=== PATIENT | female | born 1970 | race Caucasian/White ===

== ENCOUNTER 2017-02-17 05:34 | Inpatient (IN) | payer OTHER ==
[2017-02-14 10:11] VITALS: Ht 151.1 cm; Wt 68.0 kg
[2017-02-17] VITALS (29 sets, daily range): BP systolic 83–144; BP diastolic 49–77; PULSE 68–117; RESP 10–24
[~2017-02-17] VITALS: Ht 151.1 cm; Wt 68.0 kg
[2017-02-17] MEDS ORDERED: BUPIVACAINE 0.25% (MPF) 10 ML 10 ML VIAL ONE (06:41)
[2017-02-17] MEDS ORDERED: GELATIN SIZE 100 SPONGE ONE (06:41)
[2017-02-17] MEDS ORDERED: THROMBIN 5000 UNIT VIAL ONE (06:41)
[2017-02-17] MEDS ORDERED: POLYMYXIN/BACITRACIN 1L IRRIG ONE (06:41)
[2017-02-17] MEDS ORDERED: FENTAnyl 50 MCG/ML VIAL ONE (06:48)
[2017-02-17] MEDS ORDERED: CEFAZOLIN 2 GM/50 ML (PMX) 50 ML IVPB ONE (06:54)
[2017-02-17] MEDS ORDERED: CEFAZOLIN 2 GM/50 ML (PMX) 50 ML IVPB SCH (06:55)
--- NOTE | 2017-02-17 06:55 | HPN ---
Date/Time of Note Date/Time of Note DATE: 02/17/17 TIME: 06:55 Interval H&P Admission Note Pt. seen H&P reviewed: No system changes SIMON HECTOR MD Feb 17, 2017 06:55
[2017-02-17] MEDS ORDERED: HYDR-906 PO (07:16)
[2017-02-17] MEDS ORDERED: LIDOCAINE 2% (SDV) 5 ML INJ ONE (07:39)
[2017-02-17] MEDS ORDERED: SUCCINYLCHOLINE CHLORIDE 100 MG/5 ML SYG IV ONE (07:39)
[2017-02-17] MEDS ORDERED: SUGAMMADEX SODIUM 200 MG/2 ML VIAL IV ONE (07:39)
[2017-02-17] MEDS ORDERED: PROPOFOL 40 ML ONE (07:39)
[2017-02-17] MEDS ORDERED: ROCURONIUM 50 MG INJ ONE (07:39)
[2017-02-17] MEDS ORDERED: DIPHENHYDRAMINE 50 MG INJ IV PRN (08:00)
[2017-02-17] MEDS ORDERED: ONDANSETRON 4 MG INJ IV PRN ×2 (08:00→09:00)
[2017-02-17] MEDS ORDERED: LABETALOL HCL 20MG INJ IV PRN (08:00)
[2017-02-17] MEDS ORDERED: METOCLOPRAMIDE 10 MG INJ IV PRN (08:00)
[2017-02-17] MEDS ORDERED: HYDROmorphONE (0.2 MG/ML) 10ML SYG IV PRN ×2 (08:00)
[2017-02-17] MEDS ORDERED: MEPERIDINE 25 MG INJ IV PRN (08:00)
[2017-02-17] MEDS ORDERED: FENTAnyl 50 MCG/ML VIAL IV PRN ×2 (08:00)
[2017-02-17] MEDS: HYDROmorphONE (0.2 MG/ML) 10ML SYG IV PRN ×3 (08:44→09:26)
[2017-02-17] MEDS ORDERED: HYDROmorphONE 0.2 MG/ML PCA ONE (08:58)
[2017-02-17] MEDS ORDERED: DEXTROSE 5%-0.45% NACL 1,000 ML IV SCH (09:00)
[2017-02-17] MEDS ORDERED: BETHANECHOL 25 MG TAB PO PRN (09:00)
[2017-02-17] MEDS ORDERED: ZOLPIDEM 5 MG TAB PO PRN (09:00)
[2017-02-17] MEDS ORDERED: DIPHENHYDRAMINE 50 MG CAP PO PRN (09:00)
[2017-02-17] MEDS ORDERED: TRIMETHOBENZAMIDE 100 MG/ML VIAL IM PRN (09:00)
[2017-02-17] MEDS ORDERED: ACETAMINOPHEN 325 MG TAB PO PRN (09:00)
[2017-02-17] MEDS ORDERED: HYDROCODONE/APAP (5/325) TAB PO PRN ×2 (09:00)
[2017-02-17] MEDS ORDERED: PROCHLORPERAZINE 10 MG TAB PO PRN (09:00)
[2017-02-17] MEDS ORDERED: DIAZEPAM 5 MG/ML SYG IM PRN (09:00)
[2017-02-17] MEDS ORDERED: DIAZEPAM 5 MG TAB PO PRN (09:00)
[2017-02-17] MEDS ORDERED: AL HYDROX/MG HYDROX/SIMETH 30 ML CUP PO PRN (09:00)
[2017-02-17] MEDS ORDERED: NACL 0.9% 3 ML SYG IV SCH (09:00)
[2017-02-17] MEDS ORDERED: CEPASTAT LOZENGE MT PRN (09:00)
[2017-02-17] MEDS ORDERED: NALOXONE (0.4 MG/ML) INJ IV PRN (09:00)
--- NOTE | 2017-02-17 09:10 | SIPON ---
Date/Time of Note Date/Time of Note DATE: 02/17/17 TIME: 09:05 Operative Report Preoperative Diagnosis Herniated lumbar disc L4-5 on the right Postoperative Diagnosis Same Operation/Procedure Performed Lumbar laminotomy L4 on the right Microdiscectomy L4-5 on the right Medial facetectomy and foraminotomy L4-5 on the right Cosmetic wound closure (2.6 cm) Lateral localizing lumbar radiographs (2) Intraoperative nerve monitoring (45 minutes) Surgeon: SIMON HECTOR MD technical administrative assistant: SAEID HOFFMAN Anesthesia Type: general Estimated Blood Loss: 10 - 50 ml's Transfusion Required: no Specimens Disc L4-5 on the right Grafts/Implants: none Complications: no SIMON HECTOR MD Feb 17, 2017 09:10
[2017-02-17] MEDS: HYDROmorphONE 0.2 MG/ML PCA IV SCH (09:16)
--- NOTE | 2017-02-17 11:23 | RADRPT ---
PROCEDURE: XR Lumbar Spine. CLINICAL INDICATION: Lower back Pain. L4-5 microdiskectomy TECHNIQUE: An AP view of the lumbar spine was obtained. COMPARISON: No prior studies are available for comparison. FINDINGS: Alignment is anatomic. No fracture or dislocation. Diffuse degenerative disk disease is noted. Po stsurgical changes are present. There are probes directed at the body and posterior elements of L4 and L5. IMPRESSION: Intraoperative localization film. Anatomic alignment. RPTAT: QQ .Lorena Venegas MD, MD Date Time Electronically viewed and signed by .Lorena Venegas MD, MD on 02/17/2017 11:23 .F/
--- NOTE | 2017-02-17 11:27 | RADRPT ---
PROCEDURE: XR Lumbar Spine. CLINICAL INDICATION: Lower back Pain. L4-5 microdiskectomy TECHNIQUE: An AP view of the lumbar spine was obtained. COMPARISON: Plain film from the same day FINDINGS: Alignment is anatomic. No fracture or dislocation. Diffuse degenerative disk disease is noted. Po stsurgical changes are present. 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 IMPRESSION: Intraoperative localization film. Anatomic alignment. RPTAT: QQ .Lorena Venegas MD, MD Date Time Electronically viewed and signed by .Lorena Venegas MD, on 02/17/2017 11:26 .F/
[2017-02-17] MEDS: CEFAZOLIN 1 GM/50 ML (PMX) 50 ML IVPB SCH ×2 (11:56→18:04)
--- NOTE | 2017-02-17 12:03 | OPR ---
DATE OF OPERATION: 02/17/2017 SURGEON: Sammy Pennington MD. CMM TECHNICIAN: Elsie Kingston PA-C. ANESTHESIOLOGIST: Roberto Bustillo MD PREOPERATIVE DIAGNOSIS: Herniated disc, L4-5 on the right. POSTOPERATIVE DIAGNOSIS: Herniated disc, L4-5 on the right. OPERATION PERFORMED: 1. Right hemilaminotomy, L4. 2. Microdiskectomy L4-5 on the right. 3. Medial facetectomy foraminotomy L4-5 on the right. 4. Cosmetic wound closure (2.6 cm). 5. Lateral localized lumbar radiographs (2). 6. Intraoperative nerve monitoring (45 minutes). ANESTHESIA: General tracheal. ESTIMATED BLOOD LOSS: 30 mL-none replaced. DRAINS: Two medium Hemovac drains employed. COMPLICATIONS: No complications. INDICATIONS: This is a 47-year-old female who sustained injury to her back in the course of employment on 03/29/2016. She has had extensive care since that time, and she has remained symptomatic with pain in her back radiating down the right leg which has been unrelieved by conservative management. She has undergone a number of diagnostic studies including an MRI of the lumbar spine which demonstrated herniation of the L4-5 disc centrally into the right. Treatment options were discussed with the patient. She elected to proceed with surgery. OPERATIVE FINDINGS AT SURGERY: A small right paracentral herniation at L4-5 was confirmed. The baseline intraoperative nerve monitor revealed decrease in the right L4 potential 40 percent and decrease in the right L5 potential 50 percent. These both returned to normal at the completion of surgery. OPERATION PERFORMED: With the patient in supine position and after satisfactory induction of general endotracheal anesthesia by , the patient was turned to the prone position onto the [place] frame. All pressure points were carefully padded. The back was prepped and draped usual sterile fashion. Athrombic pumps were applied to the legs below the knees, for venous stasis during and after the procedure. Two spinal needles were placed at what was felt to be the L4 and L5 spinous processes, lateral roentgenogram was taken which confirmed anatomical position. A 2.6 cm incision was then carried midline over the spinous process of L4. After the skin was infiltrated with 0.25 percent Marcaine without epinephrine for postoperative analgesia. Superficial retractors were placed and hemostasis was secured with electrocautery. Throughout the procedure copious antibacterial irrigating solution was used to periodically irrigate the wound. The fascia was incised in midline with a hot knife and unilateral sub-periosteal dissection was carried out at L4 on the right. Deep retractors were placed and deep hemostasis secure electrocautery. A second intraoperative radiograph was taken and deep retractor was felt to be the L4-5 interspace, and this was confirmed with a second x-ray. A right hemilaminotomy of L4 was then carried out using a Leksell rongeur, Kerrison punch and curettes. Ligamentum flava was excised with sharp dissection. The operating microscope was then moved into place. A medial facetectomy foraminotomy was accomplished using small hand osteotome and mallet, Kerrison punch and curettes. The L5 root was then mobilized medially and protected with a Endyian nerve retractor using microdissection technique. This revealed a herniation of the L4-5 disc. The 15 blade knife was then used to cut a window in the annulus and posterior longitudinal ligament and multiple joint disc fragments were harvested with a pituitary rongeured and sent lab for pathologic study. Additional fragments were harvested using Chace curettes. A thorough search of the floor of canal was made with an arthroscopic probe, no additional fragments were encountered. The epidural hemostasis was secured with bipolar electrocautery on a low setting. The anesthesiologist was asked to perform a Valsalva maneuver 40 mmHg, and no spinal fluid leak was noted. The wound was then closed in layers over 2 medium 2 medium Hemovac drains, 1 below the fascia, 1 above the fascia, using #1 Vicryl [id number] approximating suture in the deep parietal musculature and deep fascia to the back, and #2-0 Vicryl subcutaneous approximating sutures for the subcutaneous tissue and #4-0 Vicryl subcuticular cosmetic closing suture for the skin. Dermabond and sterile compressive dressings were applied. The patient tolerated procedure well. Centered in supine position onto her bed and extubated by Dr. Bustillo. She was transported to the recovery room in satisfactory condition. At the conclusion procedure, sponge and needle counts were all correct. NEED FOR SOCIAL MEDIA ANALYST: During this spinal surgical procedure, my computer assistant was used to retract and protect the spinal nerves and dural sac. My computer assistant also employed the suction catheters to evacuate blood from the surgical field to improve visualization of the neural structures. The computer assistant was medically necessary to facilitate the completion of the surgery in a safe and expeditious manner. State of [place] regulations, as well as hospital bylaws, preclude the use of non- licensed health care personnel such as operating room technicians, to perform these functions. Throughout the procedure, neuro finding was carried out by [employer] including EMG, SSEP and MEP monitoring of the L3, L4, L5 and S1 nerve roots bilaterally, along with spinal cord potentials. These were interpreted by a neurologist employed by [employer]. Dictated By: Sammy Pennington MD /carlito/isabel /Document#: [id number]
[2017-02-17] MEDS: DEXTROSE 5%-0.9% NACL 1,000 ML IV SCH ×2 (13:40→21:12)
--- NOTE | 2017-02-17 20:07 | CONS ---
DATE OF ADMISSION: 02/17/2017 DATE OF CONSULTATION: 02/17/2017 REASON FOR CONSULTATION: Thank you very much for allowing me to evaluate this 47-year-old female, who just underwent lumbar spine surgery. HISTORICAL EVENTS: As you well know, this patient has had ongoing low back pain and right leg radicular pain since a fall at work in March 2016. She underwent lumbar spine surgery earlier today, and is presently on the orthopedic floor. She had transient fall in blood pressure to about 90 and with increasing fluid her pressure returned to above 100 systolic. She does note some pressure in the chest, slight shortness of breath without radiating neck, arm or jaw discomfort. She has had slight nausea. No vomiting. No abdominal pain. She denies antecedent pathologic symptoms. PAST MEDICAL HISTORY: Unrevealing for hypertension, diabetes or heart disease. MEDICATION: Prior to admission include [place] 325/5. FAMILY HISTORY: Positive for diabetes, hypertension, hyperlipidemia, and seizure disorder. SOCIAL HISTORY: She does not smoke. Does not drink alcohol. ALLERGIES: NONE. PHYSICAL EXAMINATION: VITAL SIGNS: BP 118/65, respirations were 18. She was afebrile. Pulse was 70. HEENT: Eyes, extraocular muscles were full. Nose, mouth and throat, normal. NECK: Supple. There was no jugular venous distention, Thyroid enlargement, adenopathy. Carotids 2+. No bruits. LUNGS: Clear. HEART: Rhythm regular. No murmur. ABDOMEN: Nontender. Liver and spleen were not palpable. No mass or tenderness were noted. EXTREMITIES: No edema. Calves nontender. NEUROLOGIC: No lateralizing motor weakness. IMPRESSION: 1. Transient hypotension probably secondary to volume contraction versus vasovagal related to nausea. 2. Chest pain, probably musculoligamentous. PLAN: EKG to be obtained. Increasing fluids (isotonic), and observe. Dictated By: Mitch Delarosa MD /carlito/rachelle /Document#: [id number]
[2017-02-17] MEDS: RANITIDINE 150 MG TAB PO SCH (20:30)
[2017-02-18] MEDS: CEFAZOLIN 1 GM/50 ML (PMX) 50 ML IVPB SCH ×2 (00:17→05:35)
[2017-02-18 00:32] VITALS: BP 100/58; RESP 18
[2017-02-18] MEDS: HYDROmorphONE 0.2 MG/ML PCA IV SCH (01:15)
[2017-02-18] MEDS: DEXTROSE 5%-0.9% NACL 1,000 ML IV SCH ×4 (02:50→22:08)
[2017-02-18 05:53] LABS: HEMATOCRIT 37.7 % (37.0-47.0); HEMOGLOBIN 12.5 g/dl (12.0-16.0)
[2017-02-18 06:08] LABS: CREATININE 0.54 mg/dl (0.44-1.00); POTASSIUM 3.8 mmol/L (3.5-5.1)
--- NOTE | 2017-02-18 07:02 | PN ---
Date/Time of Note Date/Time of Note DATE: 02/18/17 TIME: 06:59 Assessment/Plan Lines/Catheters IV Catheter Type (from Nrs): Peripheral IV Plascencia in Place (from Nrs): No Subjective 24 Hr Interval Summary The patient is postop day #1 following a microdiscectomy at L4-5 on the right. She is afebrile. She is resting comfortably in bed. Neurovascular structures are intact distally. A.m. labs were unremarkable. Her Hemovac output was 50 cc from 6 PM to 7 AM and will be left in place at this time her medications will be tapered, and physical therapy will mobilize her as tolerated. Exam/Review of Systems Vital Signs Vitals Vital Signs Date Time Temp Pulse Resp B/P Pulse Ox O2 Delivery O2 Flow Rate FiO2 02/18/17 05:14 19 02/18/17 00:32 98.2 77 100/58 99 02/17/17 20:00 Nasal Cannula 2.0 Intake and Output 02/17/17 02/17/17 02/18/17 15:00 23:00 07:00 Intake Total 1450 ml 1530 ml 1380 ml Output Total 30 ml 630 ml 50 ml Balance 1420 ml 900 ml 1330 ml Results Result Diagram: 02/18/17 0516 02/18/17 0516 SIMON HECTOR MD Feb 18, 2017 07:02
[2017-02-18 07:54] VITALS: BP 94/52; RESP 20
--- NOTE | 2017-02-18 08:30 | CONS ---
Date/Time of Note Date/Time of Note DATE: 02/18/17 TIME: 08:26 Assessment/Plan Assessment/Plan Additional Assessment/Plan 1. Post op lumbar back surgery 2. Headache without path vis sxs or vomiting, will rev with ortho, and treat symptomatically for now. 3. Labs rev Consultation Date/Type/Reason Admit Date/Time Feb 17, 2017 at 05:34 Initial Consult Date Detailed Summary Respiratory: No shortness of breath Cardiovascular: No chest pain, No lightheadedness Gastrointestinal: no complaints Musculoskeletal: back pain (moderate) Neurologic: headache (frontal with path vis sxs) Exam/Review of Systems Vital Signs Vitals Vital Signs Date Time Temp Pulse Resp B/P Pulse Ox O2 Delivery O2 Flow Rate FiO2 02/18/17 07:54 99.8 77 20 94/52 99 02/17/17 20:00 Nasal Cannula 2.0 Intake and Output 02/17/17 02/17/17 02/18/17 15:00 23:00 07:00 Intake Total 1450 ml 1530 ml 1380 ml Output Total 30 ml 630 ml 50 ml Balance 1420 ml 900 ml 1330 ml Exam Neck: No jvd Respiratory: clear to auscultation Cardiovascular: regular rate and rhythm Gastrointestinal: soft Extremities: No edema (and no calf tend bilat) Results Result Diagram: 02/18/17 0516 02/18/17 0516 Results 24 hrs Laboratory Tests Test 02/18/17 05:16 02/18/17 05:50 Hemoglobin 12.5 Hematocrit 37.7 Sodium Level 136 Potassium Level 3.8 Chloride Level 106 Carbon Dioxide Level 23 Anion Gap 11 Blood Urea Nitrogen 4 L Creatinine 0.54 Glucose Level 142 Calcium Level 8.0 L Lab Scanned Report LAB Medications Medications Current Medications Acetaminophen/ Hydrocodone Bitart ([place] (5/325)) 1 tab Q4H PRN PO PAIN LEVEL 1 -5; Start 02/17/17 at 09:00; Status Future Hold Acetaminophen/ Hydrocodone Bitart ([place] (5/325)) 2 tab Q4H PRN PO PAIN LEVEL 6 -10; Start 02/17/17 at 09:00; Status Future Hold Zolpidem Tartrate (Ambien) 5 mg HS PRN PO INSOMNIA; Start 02/17/17 at 09:00 Prochlorperazine (Compazine) 10 mg Q4H PRN PO NAUSEA AND/OR VOMITING; Start 04/25 at 09:00 Trimethobenzamide HCl (Tigan) 200 mg Q4H PRN IM NAUSEA AND/OR VOMITING; Start 02/17/17 at 09:00 Ondansetron HCl (Zofran Inj) 4 mg Q6H PRN IV NAUSEA AND/OR VOMITING; Start 04/25 at 09:00 Al Hydrox/Mg Hydrox/Simethicone (Mag-Al Plus) 15 ml Q4H PRN PO CONSTIPATION; Start 02/17/17 at 09:00 Docusate Sodium (Colace) 100 mg BID PO ; Start 02/18/17 at 09:00 Acetaminophen (Tylenol Tab) 650 mg Q4H PRN PO TEMP GREATER THAN 101F OR SCHMIDT; Start 02/17/17 at 09:00 Ascorbic Acid (Vitamin C) 1,000 mg BID PO ; Start 02/18/17 at 09:00 Ferrous Sulfate (Ferrous Sulfate (Ec)) 325 mg TID PO ; Start 02/18/17 at 09:00 Ranitidine HCl (Zantac) 150 mg BID PO Last administered on 02/17/17 20:30; Admin Dose 150 MG; Start 02/17/17 at 21:00 Diazepam (Valium) 5 mg Q4H PRN PO MUSCLE SPASMS; Start 02/17/17 at 09:00 Diazepam (Valium) 5 mg Q4H PRN IM MUSCLE SPASMS; Start 02/17/17 at 09:00 Phenol (Cepastat Lozenge) 1 lozenge PRN PRN MT SORE THROAT; Start 02/17/17 at 09:00 Bethanechol Chloride (Urecholine) 25 mg PRN PRN PO UNABLE TO VOID; Start at 09:00 Diphenhydramine HCl (Benadryl) 50 mg Q6H PRN PO PRURITUS; Start 02/17/17 at 09: 00 Hydromorphone HCl (Dilaudid EDUCATIONAL SIGN LANGUAGE INTERPRETER) Q4PCA IV Last administered on 02/18/17 01:15 ; Admin Dose 6 MG; Start 02/17/17 at 09:00 Naloxone HCl 0.2 mg 0.2 mg Q2M PRN IV RR 8 BREATHS/MIN OR LESS; Start 02/17/17 at 09:00 Dextrose/Sodium Chloride (D5-NS) 1,000 ml @ 150 mls/hr Q6H40M IV Last administered on 02/17/17t 21:12; Admin Dose 150 MLS/HR; Start 02/17/17 at 13:30 IFRAH JOSÉ MD Feb 18, 2017 08:30
[2017-02-18] MEDS ORDERED: HYDROCODONE/APAP (5/325) TAB PO PRN (09:30)
[2017-02-18] MEDS: HYDROCODONE/APAP (5/325) TAB PO PRN ×2 (09:41→13:52)
[2017-02-18 09:50] VITALS: PULSE 115
[2017-02-18] MEDS: DOCUSATE SODIUM 100 MG CAP PO SCH ×2 (10:03→20:42)
[2017-02-18] MEDS: RANITIDINE 150 MG TAB PO SCH ×2 (10:03→20:42)
[2017-02-18] MEDS: FERROUS SULFATE (EC) 325 MG TAB PO SCH ×3 (10:04→20:42)
[2017-02-18] MEDS: ASCORBIC ACID 500 MG TAB PO SCH ×2 (10:05→20:42)
--- NOTE | 2017-02-18 10:46 | RADRPT ---
PROCEDURE: XR Chest AP portable CLINICAL INDICATION: Fever, herniated disc TECHNIQUE: An AP portable radiograph of the chest was submitted. COMPARISON: None. FINDINGS: Support Hardware: None Cardiovascular: The cardiovascular silhouette appears unremarkable. Lung Paz: The lung paz appear clear with no nodule, alveolar infiltrate, or interstitial promi nence evident. Pleural Spaces: No pneumothorax or pleural effusion is identified. Osseous Structures: The osseous structures appear intact. Soft Tissues: The soft tissues appear generous. IMPRESSION: Unremarkable portable chest. Physician Jose Date Time Electronically viewed and signed by Savannah Bernal Physician on 02/18/2017 10:45 RH/
[2017-02-18 13:11] LABS: ADD UMIC YES; UR ASCORBIC ACID NEGATIVE (NEGATIVE); UR BILIRUBIN (Dip) NEGATIVE (NEGATIVE); UR BLOOD (Dip) 2+ mg/dL (NEGATIVE); UR CLARITY CLEAR (CLEAR); UR COLOR STRAW (YELLOW); UR GLUCOSE (Dip) NEGATIVE (NEGATIVE); UR KETONES (Dip) NEGATIVE (NEGATIVE); UR LEUKOCYTE ESTERASE (Dip) NEGATIVE Leu/ul (NEGATIVE); UR NITRITE (Dip) NEGATIVE (NEGATIVE); UR RBC 1 /HPF (0-5); UR SPECIFIC GRAVITY (Dip) 1.006 (1.003-1.030); UR TOTAL PROTEIN (Dip) NEGATIVE (NEGATIVE); UR UROBILINOGEN (Dip) NEGATIVE (NEGATIVE)
[2017-02-18 14:00] VITALS: BP 112/56; RESP 18
[2017-02-18 19:40] VITALS: BP 97/54; RESP 18
[2017-02-19 01:36] VITALS: BP 104/53; RESP 18
[2017-02-19 05:18] LABS: BASOPHILS % 0.4 % (0.0-2.0); EOSINOPHILS # 0.2 10^3/ul (0.0-0.5); EOSINOPHILS % 1.9 % (0.0-7.0); HEMATOCRIT 37.9 % (37.0-47.0); HEMOGLOBIN 12.3 g/dl (12.0-16.0); LYMPHOCYTES # 2.1 10^3/ul (0.8-2.9); LYMPHOCYTES % 24.9 % (15.0-51.0); MEAN CORPUSCULAR HEMOGLOBIN 29.1 pg (29.0-33.0); MEAN CORPUSCULAR HGB CONC 32.5 g/dl (32.0-37.0); MEAN CORPUSCULAR VOLUME 89.6 fl (82.0-101.0); MEAN PLATELET VOLUME 10.4 fl (7.4-10.4); MONOCYTE # 0.8 10^3/ul (0.3-0.9); MONOCYTES % 8.8 % (0.0-11.0); NEUTROPHILS % 63.5 % (39.0-77.0); PLATELET COUNT 200 10^3/UL (140-415); RED BLOOD COUNT 4.23 10^6/ul (4.20-5.40); RED CELL DISTRIBUTION WIDTH 12.9 % (11.5-14.5); WHITE BLOOD COUNT 8.5 10^3/ul (4.8-10.8)
[2017-02-19] MEDS: DEXTROSE 5%-0.9% NACL 1,000 ML IV SCH (05:30)
[2017-02-19 05:37] LABS: CALCIUM 8.7 mg/dl (8.4-10.2); CREATININE 0.59 mg/dl (0.44-1.00); PHOSPHORUS 3.7 mg/dl (2.5-4.9); POTASSIUM 3.6 mmol/L (3.5-5.1)
--- NOTE | 2017-02-19 06:49 | PN ---
Date/Time of Note Date/Time of Note DATE: 02/19/17 TIME: 06:48 Assessment/Plan Lines/Catheters IV Catheter Type (from Nrsg): Saline Lock Plascencia in Place (from Nrsg): No Subjective 24 Hr Interval Summary Patient is postop day #2 following a microdiscectomy at L4-5 on the right. Her a.m. lab work is unremarkable. Has a low-grade fever (100.6) neurovascular structures are intact distally, however she complains of some paresthesias in her right lower extremity. Her Hemovac was discontinued yesterday. Physical therapy will mobilize her as tolerated today. May be discharged later today if she is afebrile and cleared by physical therapy. Exam/Review of Systems Vital Signs Vitals Vital Signs Date Time Temp Pulse Resp B/P Pulse Ox O2 Delivery O2 Flow Rate FiO2 02/19/17 01:36 100.6 88 18 104/53 95 02/18/17 08:00 2.0 02/17/17 20:00 Nasal Cannula Intake and Output 02/18/17 02/18/17 02/19/17 15:00 23:00 07:00 Intake Total 550 ml 900 ml 650 ml Output Total 910 ml Balance -360 ml 900 ml 650 ml Results Result Diagram: 02/19/17 0450 02/19/17 0450 SIMON HECTOR MD Feb 19, 2017 06:49
[2017-02-19 08:25] VITALS: BP 109/61; RESP 20
[2017-02-19] MEDS: FERROUS SULFATE (EC) 325 MG TAB PO SCH ×3 (08:28→20:13)
[2017-02-19] MEDS: ASCORBIC ACID 500 MG TAB PO SCH ×2 (08:28→20:13)
[2017-02-19] MEDS: DOCUSATE SODIUM 100 MG CAP PO SCH ×2 (08:28→20:13)
[2017-02-19] MEDS: RANITIDINE 150 MG TAB PO SCH ×2 (08:28→20:13)
[2017-02-19] MEDS: HYDROCODONE/APAP (5/325) TAB PO PRN ×2 (08:29→15:35)
--- NOTE | 2017-02-19 08:29 | CONS ---
Date/Time of Note Date/Time of Note DATE: 02/19/17 TIME: 08:27 Assessment/Plan Assessment/Plan Additional Assessment/Plan 1. Post op lumbar back surgery with cont pain and ? right leg weakness 2. SCHMIDT persists, will obtain ct brain and try fioricet. 3. Labs rev Consultation Date/Type/Reason Admit Date/Time Feb 17, 2017 at 05:34 Detailed Summary Respiratory: No cough, No shortness of breath Cardiovascular: No chest pain, No orthopenea Gastrointestinal: no complaints Genitourinary: no complaints Musculoskeletal: back pain (is mild to moderate and right leg feels weak when trying to stand) Neurologic: headache (fronal continues without path vis sxs) Exam/Review of Systems Vital Signs Vitals Vital Signs Date Time Temp Pulse Resp B/P Pulse Ox O2 Delivery O2 Flow Rate FiO2 02/19/17 08:25 98.7 79 20 109/61 95 02/18/17 08:00 2.0 02/17/17 20:00 Nasal Cannula Intake and Output 02/18/17 02/18/17 02/19/17 15:00 23:00 07:00 Intake Total 550 ml 900 ml 650 ml Output Total 910 ml Balance -360 ml 900 ml 650 ml Exam Neck: No jvd Respiratory: clear to auscultation Cardiovascular: regular rate and rhythm Gastrointestinal: soft Neurological: No focal weakness Results Result Diagram: 02/19/17 0450 02/19/17 0450 Results 24 hrs Laboratory Tests Test 02/18/17 11:20 02/19/17 04:50 Urine Color STRAW Urine Clarity CLEAR Urine pH 7.0 Urine Specific [place] 1.006 Urine Ketones NEGATIVE Urine Nitrite NEGATIVE Urine Bilirubin NEGATIVE Urine Urobilinogen NEGATIVE Urine Leukocyte Esterase NEGATIVE Urine Microscopic RBC 1 Urine Microscopic WBC 0 Urine Hemoglobin 2+ H Urine Glucose NEGATIVE Urine Total Protein NEGATIVE White Blood Count 8.5 Red Blood Count 4.23 Hemoglobin 12.3 Hematocrit 37.9 Mean Corpuscular Volume 89.6 Mean Corpuscular Hemoglobin 29.1 Mean Corpuscular Hemoglobin Concent 32.5 Red Cell Distribution Width 12.9 Platelet Count 200 Mean Platelet Volume 10.4 Neutrophils % 63.5 Lymphocytes % 24.9 Monocytes % 8.8 Eosinophils % 1.9 Basophils % 0.4 Nucleated Red Blood Cells % 0.0 Neutrophils # (Manual) 5.4 Lymphocytes # 2.1 Monocytes # 0.8 Eosinophils # 0.2 Basophils # 0.0 Nucleated Red Blood Cells # 0.0 Sodium Level 140 Potassium Level 3.6 Chloride Level 107 Carbon Dioxide Level 25 Anion Gap 12 Blood Urea Nitrogen 6 L Creatinine 0.59 Glucose Level 138 Calcium Level 8.7 Phosphorus Level 3.7 Magnesium Level 2.0 Medications Medications Current Medications Zolpidem Tartrate (Ambien) 5 mg HS PRN PO INSOMNIA; Start 02/17/17 at 09:00 Prochlorperazine (Compazine) 10 mg Q4H PRN PO NAUSEA AND/OR VOMITING; Start 04/25 at 09:00 Trimethobenzamide HCl (Tigan) 200 mg Q4H PRN IM NAUSEA AND/OR VOMITING; Start 02/17/17 at 09:00 Ondansetron HCl (Zofran Inj) 4 mg Q6H PRN IV NAUSEA AND/OR VOMITING; Start 04/25 at 09:00 Al Hydrox/Mg Hydrox/Simethicone (Mag-Al Plus) 15 ml Q4H PRN PO CONSTIPATION; Start 02/17/17 at 09:00 Docusate Sodium (Colace) 100 mg BID PO Last administered on 02/18/17 20:42; Admin Dose 100 MG; Start 02/18/17 at 09:00 Acetaminophen (Tylenol Tab) 650 mg Q4H PRN PO TEMP GREATER THAN 101F OR SCHMIDT Last administered on 02/19/17 03:45; Admin Dose 650 MG; Start 02/17/17 at 09:00 Ascorbic Acid (Vitamin C) 1,000 mg BID PO Last administered on 02/18/17 20:42 ; Admin Dose 1,000 MG; Start 02/18/17 at 09:00 Ferrous Sulfate (Ferrous Sulfate (Ec)) 325 mg TID PO Last administered on 20:42; Admin Dose 325 MG; Start 02/18/17 at 09:00 Ranitidine HCl (Zantac) 150 mg BID PO Last administered on 02/18/17 20:42; Admin Dose 150 MG; Start 02/17/17 at 21:00 Diazepam (Valium) 5 mg Q4H PRN PO MUSCLE SPASMS Last administered on 02/18/17 11:32; Admin Dose 5 MG; Start 02/17/17 at 09:00 Diazepam (Valium) 5 mg Q4H PRN IM MUSCLE SPASMS; Start 02/17/17 at 09:00 Phenol (Cepastat Lozenge) 1 lozenge PRN PRN MT SORE THROAT; Start 02/17/17 at 09:00 Bethanechol Chloride (Urecholine) 25 mg PRN PRN PO UNABLE TO VOID; Start at 09:00 Diphenhydramine HCl (Benadryl) 50 mg Q6H PRN PO PRURITUS; Start 02/17/17 at 09: 00 Naloxone HCl 0.2 mg 0.2 mg Q2M PRN IV RR 8 BREATHS/MIN OR LESS; Start 02/17/17 at 09:00 Dextrose/Sodium Chloride (D5-NS) 1,000 ml @ 150 mls/hr Q6H40M IV Last administered on 02/18/17 09:53; Admin Dose 150 MLS/HR; Start 02/17/17 at 13:30 Acetaminophen/ Hydrocodone Bitart ([place] (5/325)) 1 tab Q4H PRN PO PAIN LEVEL 1 -5; Start 02/18/17 at 09:30 Acetaminophen/ Hydrocodone Bitart ([place] (5/325)) 2 tab Q4H PRN PO PAIN LEVEL 6 -10 Last administered on 02/18/17 13:52; Admin Dose 2 TAB; Start 02/18/17 at 09 :04 IFRAH JOSÉ MD Feb 19, 2017 08:29
[2017-02-19] MEDS ORDERED: ACET/BUTAL/CAFF TAB PO PRN (08:30)
--- NOTE | 2017-02-19 12:06 | RADRPT ---
PROCEDURE: CT Brain without contrast. CLINICAL INDICATION: Headaches. TECHNIQUE: A CT of the brain was performed on multidetector high-resolution CT scanner utilizing a xial sections from the skull base through the vertex without contrast. One or more of the following dose reduction techniques were used: Automated exposure control, Adjustment of the mA and/or kV acc ording to patient size, and/or use of iterative reconstruction technique. DOSE: CTDI = 45/45 mGy and the DLP = 720 mGy-cm. COMPARISON: None available FINDINGS: No acute intracranial hemorrhage, significant mass effect or midline shift. The mathur-white different iation is grossly preserved. The ventricles are normal in size for age. No significant opacification of the visualized paranasal sinuses or mastoids. IMPRESSION: No acute intracranial findings. RPTAT: AA .Johnson Ortiz MD, Date Time Electronically viewed and signed by .Johnson Ortiz MD, on 02/19/2017 12:05 .T/
[2017-02-19 13:53] VITALS: BP 102/56; RESP 18
[2017-02-19 20:04] VITALS: BP 93/53; RESP 18
[2017-02-20 05:28] LABS: BASOPHILS % 0.2 % (0.0-2.0); EOSINOPHILS # 0.3 10^3/ul (0.0-0.5); EOSINOPHILS % 3.6 % (0.0-7.0); HEMATOCRIT 38.3 % (37.0-47.0); HEMOGLOBIN 12.6 g/dl (12.0-16.0); LYMPHOCYTES # 2.9 10^3/ul (0.8-2.9); LYMPHOCYTES % 32.3 % (15.0-51.0); MEAN CORPUSCULAR HGB CONC 32.9 g/dl (32.0-37.0); MEAN CORPUSCULAR VOLUME 91.2 fl (82.0-101.0); MEAN PLATELET VOLUME 10.6 fl (7.4-10.4); MONOCYTE # 0.8 10^3/ul (0.3-0.9); MONOCYTES % 8.7 % (0.0-11.0); NEUTROPHILS % 54.6 % (39.0-77.0); PLATELET COUNT 225 10^3/UL (140-415); RED CELL DISTRIBUTION WIDTH 12.7 % (11.5-14.5); WHITE BLOOD COUNT 9.1 10^3/ul (4.8-10.8)
[2017-02-20 05:59] LABS: CALCIUM 8.7 mg/dl (8.4-10.2); CREATININE 0.55 mg/dl (0.44-1.00); POTASSIUM 3.8 mmol/L (3.5-5.1)
--- NOTE | 2017-02-20 07:22 | PN ---
Date/Time of Note Date/Time of Note DATE: 02/20/17 TIME: 07:20 Assessment/Plan Lines/Catheters IV Catheter Type (from Nrsg): Saline Lock Plascencia in Place (from Nrsg): No Subjective 24 Hr Interval Summary Patient is postop day #3 following a microdiscectomy at L4-5 on the right. She is now afebrile. Neuro-vascular structures are intact distally. Numbness that she was experiencing in her right lower extremity is gone. Morning lab work is unremarkable. She has made slow progress in physical therapy, however I anticipate she will be cleared for discharge later today. She had a CT of the brain for complaints of headaches that was normal. She had cultures for temperature elevation (blood cultures) which show no growth. Her chest x-ray was negative. She has been given strict discharge precautions and instructions as well as follow-up arrangements with a [place] guide. Exam/Review of Systems Vital Signs Vitals Vital Signs Date Time Temp Pulse Resp B/P Pulse Ox O2 Delivery O2 Flow Rate FiO2 02/19/17 20:04 98.1 80 18 93/53 96 02/18/17 08:00 2.0 02/17/17 20:00 Nasal Cannula Intake and Output 02/19/17 02/19/17 02/20/17 15:00 23:00 07:00 Intake Total 1300 ml Balance 1300 ml Results Result Diagram: 02/20/17 0442 02/20/17 0442 SIMON HECTOR MD Feb 20, 2017 07:22
--- NOTE | 2017-02-20 07:27 | CONS ---
Date/Time of Note Date/Time of Note DATE: 02/20/17 TIME: 07:24 Assessment/Plan Assessment/Plan Additional Assessment/Plan 1. Post op lumbar back surgery doing well 2. SCHMIDT's are less, CT brain was neg 3. Labs were rev 4. OK to dc per Ortho and PT Consultation Date/Type/Reason Admit Date/Time Feb 17, 2017 at 05:34 Detailed Summary Respiratory: No shortness of breath Cardiovascular: No chest pain Gastrointestinal: other (no bm), No vomiting Genitourinary: no complaints Musculoskeletal: back pain (is mild) Neurologic: headache (much improved) Exam/Review of Systems Vital Signs Vitals Vital Signs Date Time Temp Pulse Resp B/P Pulse Ox O2 Delivery O2 Flow Rate FiO2 02/19/17 20:04 98.1 80 18 93/53 96 02/18/17 08:00 2.0 02/17/17 20:00 Nasal Cannula Intake and Output 02/19/17 02/19/17 02/20/17 15:00 23:00 07:00 Intake Total 1300 ml Balance 1300 ml Exam Neck: No jvd Respiratory: clear to auscultation Cardiovascular: regular rate and rhythm Gastrointestinal: soft Extremities: No edema (and no calf tend) Results Result Diagram: 02/20/17 0442 02/20/17 0442 Results 24 hrs Laboratory Tests Test 02/20/17 04:42 White Blood Count 9.1 Red Blood Count 4.20 Hemoglobin 12.6 Hematocrit 38.3 Mean Corpuscular Volume 91.2 Mean Corpuscular Hemoglobin 30.0 Mean Corpuscular Hemoglobin Concent 32.9 Red Cell Distribution Width 12.7 Platelet Count 225 Mean Platelet Volume 10.6 H Neutrophils % 54.6 Lymphocytes % 32.3 Monocytes % 8.7 Eosinophils % 3.6 Basophils % 0.2 Nucleated Red Blood Cells % 0.0 Neutrophils # 5.0 Lymphocytes # 2.9 Monocytes # 0.8 Eosinophils # 0.3 Basophils # 0.0 Nucleated Red Blood Cells # 0.0 Sodium Level 138 Potassium Level 3.8 Chloride Level 105 Carbon Dioxide Level 27 Anion Gap 10 Blood Urea Nitrogen 7 Creatinine 0.55 Glucose Level 128 Calcium Level 8.7 Medications Medications Current Medications Zolpidem Tartrate (Ambien) 5 mg HS PRN PO INSOMNIA; Start 02/17/17 at 09:00 Prochlorperazine (Compazine) 10 mg Q4H PRN PO NAUSEA AND/OR VOMITING; Start 04/25 at 09:00 Trimethobenzamide HCl (Tigan) 200 mg Q4H PRN IM NAUSEA AND/OR VOMITING; Start 02/17/17 at 09:00 Ondansetron HCl (Zofran Inj) 4 mg Q6H PRN IV NAUSEA AND/OR VOMITING; Start 04/25 at 09:00 Al Hydrox/Mg Hydrox/Simethicone (Mag-Al Plus) 15 ml Q4H PRN PO CONSTIPATION; Start 02/17/17 at 09:00 Docusate Sodium (Colace) 100 mg BID PO Last administered on 02/19/17 20:13; Admin Dose 100 MG; Start 02/18/17 at 09:00 Acetaminophen (Tylenol Tab) 650 mg Q4H PRN PO TEMP GREATER THAN 101F OR SCHMIDT Last administered on 02/19/17 03:45; Admin Dose 650 MG; Start 02/17/17 at 09:00 Ascorbic Acid (Vitamin C) 1,000 mg BID PO Last administered on 02/19/17 20:13 ; Admin Dose 1,000 MG; Start 02/18/17 at 09:00 Ferrous Sulfate (Ferrous Sulfate (Ec)) 325 mg TID PO Last administered on 20:13; Admin Dose 325 MG; Start 02/18/17 at 09:00 Ranitidine HCl (Zantac) 150 mg BID PO Last administered on 02/19/17 20:13; Admin Dose 150 MG; Start 02/17/17 at 21:00 Diazepam (Valium) 5 mg Q4H PRN PO MUSCLE SPASMS Last administered on 02/18/17 11:32; Admin Dose 5 MG; Start 02/17/17 at 09:00 Diazepam (Valium) 5 mg Q4H PRN IM MUSCLE SPASMS; Start 02/17/17 at 09:00 Phenol (Cepastat Lozenge) 1 lozenge PRN PRN MT SORE THROAT; Start 02/17/17 at 09:00 Bethanechol Chloride (Urecholine) 25 mg PRN PRN PO UNABLE TO VOID; Start at 09:00 Diphenhydramine HCl (Benadryl) 50 mg Q6H PRN PO PRURITUS Last administered on 20:12; Admin Dose 50 MG; Start 02/17/17 at 09:00 Naloxone HCl (Narcan) 0.2 mg Q2M PRN IV RR 8 BREATHS/MIN OR LESS; Start at 09:00 Acetaminophen/ Hydrocodone Bitart ([place] (5/325)) 1 tab Q4H PRN PO PAIN LEVEL 1 -5 Last administered on 02/19/17 20:14; Admin Dose 1 TAB; Start 02/18/17 at 09: 30 Acetaminophen/ Hydrocodone Bitart ([place] (5/325)) 2 tab Q4H PRN PO PAIN LEVEL 6 -10 Last administered on 02/19/17 15:35; Admin Dose 2 TAB; Start 02/18/17 at 09 :04 Acetaminophen/ Butalbital/ Caffeine (Fioricet) 1 tab Q6H PRN PO HEADACHE; Start 02/19/17 at 08:30 IFRAH JOSÉ MD Feb 20, 2017 07:27
[2017-02-20] MEDS ORDERED: NA PHOSPHATE/BIPHOS 133 ML ENEMA PR PRN (07:30)
[2017-02-20] MEDS ORDERED: BISACODYL 10 MG SUPP PR ONE (07:30)
--- NOTE | 2017-02-20 08:57 | CONS ---
DATE OF ADMISSION: DATE OF CONSULTATION: 02/12/[address] Pennington, SURGERY DATE: 02/17/2017. Thank you very much for allowing me to evaluate this 47-year-old female, who is to undergo lumbar back surgery, on the above- mentioned date. HISTORICAL EVENTS: As you well know, this patient did suffer an injury at work in March of this year, and subsequent to the same, had the onset of low back pain and related right buttock and right leg pain. Because of persistence of this and the latter not having responded to conservative therapy, surgery was entertained and ultimately recommended. Soon after her fall, she also noted some pain involving the cervical spine, having some radicular pain involving both shoulders as well as less dramatic bifrontal headaches without nausea or vomiting. She does admit to sporadic substernal chest discomfort that does not worsen after eating nor with exertion, perhaps once or twice a month at most, lasting only minutes, unassociated with shortness of breath, vomiting, or nausea. She has no nocturnal chest discomfort. She denies cough or wheezing. She denies unusual constipation, diarrhea, symptoms of gastrointestinal bleeding, and denies pathologic symptoms. MEDICATIONS: Presently, she takes no meds. She did take [place] 325/5 as needed every 6 hours up until about 2 weeks ago. PAST MEDICAL HISTORY: She is healthy with no history of diabetes or hypertension. PAST SURGICAL HISTORY: She has had no surgeries. ALLERGIES: NONE. FAMILY HISTORY: Positive for hyperlipidemia, cholesterol, and hypertension, as well as seizure disorder. SOCIAL HISTORY: She presently is not working. She has 1 son. Does not smoke. Occasionally drinks alcohol. PHYSICAL EXAMINATION: GENERAL: [place] female in no acute distress. VITALS: BP 112/72, respirations 18, afebrile. HEENT: Eyes, extraocular muscles are full. Nose, mouth and throat are normal. NECK: Supple. There is no jugular venous distention, thyroid enlargement, or adenopathy. LUNGS: Clear. HEART: Rhythm regular. BREASTS: No masses. Heart rhythm regular. No third or fourth sound. No murmur. ABDOMEN: Nontender. Liver and spleen were not palpable. No masses or tenderness noted. EXTREMITIES: No edema. Calves are nontender. Pulses are 2+. NEUROLOGIC: No lateralizing motor weakness. IMPRESSION: Pending labs, I foresee no problems with your planned surgical intervention. I will follow her up postoperatively with you. Dictated By: Mitch Delarosa MD /carlito/les /Document#: [id number] CC: Sammy Pennington MD;*[facility]*
[2017-02-20] MEDS: ASCORBIC ACID 500 MG TAB PO SCH (10:26)
[2017-02-20] MEDS: FERROUS SULFATE (EC) 325 MG TAB PO SCH ×2 (10:26→12:36)
[2017-02-20] MEDS: RANITIDINE 150 MG TAB PO SCH (10:26)
[2017-02-20] MEDS: HYDROCODONE/APAP (5/325) TAB PO PRN ×2 (10:29→14:47)
[2017-02-20] MEDS: DOCUSATE SODIUM 100 MG CAP PO SCH (10:30)
--- NOTE | 2017-02-20 11:09 | RADRPT ---
Vent Rate: 76 bpm RR Interval: 0 msec AR Interval: 164 msec QRS Duration: 84 msec QT Interval: 400 msec QTC Interval: 450 msec P-R-T [place]: 44 - -10 - -10 degrees Normal sinus rhythm Septal infarct , age undetermined Abnormal ECG Electronically Signed By: Lei Boyer [id number]
[2017-02-20 14:00] VITALS: BP 101/71; RESP 19
== END 2017-02-20 20:00 | disposition home or self-care (01) | DRG 520 ==
LOC: REC 05:34 → MS1 09:55
PROVIDERS: ADMIT Orthopaedic Surgery; ATTEND Orthopaedic Surgery
PROC: 4A11X4G Monitoring of Peripheral Nervous Electrical Activity, Intraoperative, External Approach (ICD-10-PCS; 2017-02-17)
PROC: 0SB20ZZ Excision of Lumbar Vertebral Disc, Open Approach (ICD-10-PCS; principal; 2017-02-17 07:00)
DX: M51.26 Other intervertebral disc displacement, lumbar region (principal); I95.9 Hypotension, unspecified; R07.9 Chest pain, unspecified; R51 Headache
CPT/HCPCS: 70450; 71010; 72020; 80048; 81001; 83735; 84100; 85014; 85018; 85025; 86850; 86900; 86901; 86920; 87040; 87086; 93005; 97116; 97162; 97530; J0690; J1170; J2175; J2405; J3010; J3360; J7042; J7999